=== PATIENT | male | born 1950 | race Caucasian/White ===

== ENCOUNTER → 2020-10-29 10:49 | Outpatient (CLI) | payer MEDICARE, SELFPAY ==
[2020-10-29 11:10] VITALS: BP 120/78; PULSE 73; RESP 14; TEMP 36.7; O2SAT 95; BMI 21.6
--- NOTE | 2020-10-29 12:13 | RAO.CONSULT ---
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 History of Present Illness: 10/18/2020: MRI brain with and without contrast was performed. This demonstrated multiple enhancing parenchymal masses the largest of which is noted in the left frontal lobe measuring 2.3 x 2.3 x 2.3 cm and an additional smaller lesion nearby measuring 6 mm. There is additional enhancing mass seen in the right temporal lobe which measures 8 mm and a lesion in the left cerebellum measuring 9 mm. No other evidence of metastatic disease is identified. There is severe vasogenic edema within the left frontal lobe causing left right midline shift of up to 12 mm. 10/19/2020: CT chest with contrast was performed which demonstrated severe right hilar lymphadenopathy suspicious for malignancy there is also a pulmonary lesion in the right which is small and spiculated in the upper lobe which measures about 9 mm in diameter. 10/19/2020: CT abdomen/pelvis with contrast was performed. This demonstrated a nonspecific 2.4 cm hypodense lesion within the spleen. No evidence of primary or metastatic disease is identified. 10/19/2020: Patient was seen in follow-up by medical oncology 10/19/2020: Patient was evaluated by neurosurgery. Patient has right-sided face and arm weakness. Given the likelihood that this is metastatic disease patient was recommended to undergo definitive radiation therapy for brain metastases and surgery was not recommended. 10/19/2020: Patient was evaluated by radiation oncology. Reviewed options of FSRT and whole brain radiation. 10/22/2020: Bronchoscopy was completed and EBUS and biopsy of the 10R position was completed. Cytology demonstrated non-small cell carcinoma favoring adenocarcinoma. Radiation Treatment History: No previous history of radiation therapy. No pacemaker. No diagnosis of collagen vascular disease. Interval History: Patient presents for initial consultation. He reports that approximately 3-4 weeks ago he developed some right-sided weakness and had difficulty with walking and sustained a pretty severe fall on 10/11/2020. This led to his MRI and ultimate diagnosis. He denies ever having a seizure or loss of consciousness from any of the falls. He reports that the weakness was located in his arm, leg, and he did also have right facial droop. He has been on high-dose Decadron for approximately 10 days and his strength has gradually returned, he now is able to walk without much difficulty and no longer has facial droop. He denies having cough, shortness of breath, chest pain. He has never been a smoker. He denies headaches, vision changes, nausea/vomiting, numbness, cognitive dysfunction or short-term memory loss, diplopia or other vision changes, hearing changes. He denies having bone pain. He reports having a normal appetite which is now increased on steroids, he has lost about 4-6 pounds in the last month but denies other weight loss. He denies having dysphagia or odynophagia. He lives alone and can complete all activities of daily living without much difficulty, he does live next to his daughter who can come over to assist him with certain things. He denies having other problems or concerns at this time. Family History (Last Updated 10/29/20 @ 11:06 by Maria Isabel Grigsby RN) Mother Myocardial infarction Cancer Brother Heart disease Medical History (Last Reviewed 10/29/20 @ 11:05 by Maria Isabel Grigsby RN) Abnormal gait (Acute) Brain metastases (Acute) MRI 10/18/20 2 L frontal, R temporal, L cerebellar Frequent urination (Acute) Hilar lymphadenopathy (Acute) MRI 10/19/20 Right side, Severe Lung nodules (Acute) 10/19/20 Mass of cerebellum (Acute) 10/18/20 Right sided weakness (Acute) Skin cancer (Acute) Likely BCC Tooth abscess (Acute) Vasogenic edema (Acute) 10/18/20 Social History - Tobacco Smoking Status Never smoker Passive smoke exposure: No Social History - Substance Drug use: Yes: MARIJUANA Alcohol use: No Social History - Living Arrangements Patients Living Arrangements Alone Home Medications Medication Instructions Recorded Ascorbic Acid [Vitamin C] 500 mg PO DAILY 10/29/20 Dexamethasone [Decadron] 4 mg PO DAILY 10/29/20 Folic Acid 1 mg PO DAILY 10/29/20 Levetiracetam [Keppra] 500 mg PO BID 10/29/20 Magnesium 250 mg PO DAILY 10/29/20 Multivit-Min/Iron/Folic Acid/K 1 ea PO DAILY 10/29/20 [Adults Multivitamin Tablet] Ubidecarenone [Coq10] 50 mg PO DAILY 10/29/20 Allergy/AdvReac Type Severity Reaction Status Date / Time No Known Allergies Allergy Unverified 10/29/20 11:07 Health Maintenance Do you regularly see your Yes primary care physician? Have you ever had a Yes colonoscopy? Date of last colonoscopy: 09/03/10 Review of Systems: ROS: General (done by nursing) Fever Negative Sweats at night Negative Hot flashes Negative Temperature intolerance Positive Excessive thirst Negative Fatigue Positive Sleep difficulties Positive Unexplained weight loss Negative ROS: Skin (done by nursing) Rash Negative New or changing moles Positive ROS: Eyes (done by nursing) Eye pain Negative Eye redness Negative Visual changes Negative ROS: Ears, Nose, Throat (done by nursing) Hearing loss Negative Tinnitus Negative Dizzines or vertigo Positive Bleeding gums Negative Nosebleeds Negative ROS: Breast (done by nursing) Breast pain Negative Breast mass or lump Negative Nipple discharge Negative Breast skin changes Negative ROS: Cardiovascular (done by nursing) Chest pain Negative Heart murmur Negative Irregular heartbeat Negative Swelling Negative ROS: Pulmonary (done by nursing) Shortness of breath Negative Cough Positive Hemoptysis Negative ROS: Hematopoetic (done by nursing) Swollen lymph glands Negative Blood clots Negative Excessive bleeding Negative Anemia Negative ROS: Gastrointestinal (done by nursing) Diarrhea Negative Constipation Negative Indigestion/heartburn Positive Abdominal pain Positive Hematochezia Negative ROS: Genitourinary (done by nursing) Pain, burning, or blood on Negative urination Frequency Negative Nocturia Negative Excessive urination Negative Difficulty emptying bladder Negative Incontinence Negative Decreased sexual desire Negative Pain with intercourse Negative Sexually Transmitted Disease Negative Fertility issues Negative ROS: Genitourinary - Male (done by nursing) Erectile dysfunction Negative ROS: Musculoskeletal (done by nursing) Generalized or all-over pain Negative Joint pain Negative Stiffness Negative Joint swelling Negative Joint redness Negative Back or neck pain Positive ROS: Neurological (done by nursing) Abnormal/trouble walking or Positive falls Headache Negative Seizures Negative Muscle weakness Positive TIA or stroke Negative Syncope Negative Localized numbness, tingling, Negative neuropathy ROS: Psychological (done by nursing) Anxiety Negative Depression Negative Memory loss Positive Mood swings Negative Height/Weight/BMI: Height: 5 ft 6 in Weight: 134 lbs Vital Signs Temperature 98.1 F 10/29/20 11:10 Temperature Source Temporal 10/29/20 11:10 Pulse Rate 73 10/29/20 11:10 Respiratory Rate 14 10/29/20 11:10 Blood Pressure 120/78 10/29/20 11:10 Blood Pressure Mean 92 10/29/20 11:10 Blood Pressure Source Monitor 10/29/20 11:10 Blood Pressure Position Sitting 10/29/20 11:10 Blood Pressure Location Right Arm 10/29/20 11:10 Pulse Ox 95 10/29/20 11:10 Oxygen Delivery Method Room Air 10/29/20 11:10 Physical Exam: ECO KARNOFSKY SCORE: 70% CONSTITUTIONAL: Well-developed, well-nourished, and in no apparent distress. NECK: Supple,with no thyromegaly, and non-tender. Trachea midline. No cervical or supraclavicular adenopathy noted. CARDIAC: Regular rate and rhythm. Normal S1, S2. No murmurs, rubs, or gallops. PULMONARY/CHEST: Lungs are clear to auscultation and percussion bilaterally. No wheezes, rhonchi, or crackles noted. No increased work of breathing. ABDOMINAL: Abdomen soft, non-tender, non-distended. No hepatomegaly. Normoactive bowel sounds in all four quadrants. No guarding, rebound. BACK: Straight and aligned. No CVA tenderness. Axial skeleton non-tender to percussion. EXTREMITIES: Full range of motion in all four extremities, with normal strength equally and symmetrically. No evidence of edema. No clubbing. NEUROLOGICAL EXAM: Alert and oriented x 3. Cranial nerves II through XII are grossly intact. No focal neurological deficit. Speech is fluent. There is no upper or lower extremity sensory deficit or motor deficit. Muscle strength is 5/5 in all muscle groups. Gait and posture are steady. No dysmetria. PSYCHIATRIC: Appropriate mood and affect for the clinical situation. 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 Patient presents for initial consultation. He has a relatively high performance status with few medical comorbidities. He had symptoms associated with disease including right-sided weakness and falls which have greatly improved on Decadron 4 mg 4 times per day, he currently does not have neurologic symptoms. He was evaluated by radiation oncology and neurosurgery at [facility] and recommendation was for him to undergo primary radiation therapy for the brain metastases. I reviewed the outside imaging including brain MRI, CT chest, and CT abdomen/pelvis which demonstrates a small approximately 1 cm lesion in the upper lobe of the right lung as well as pathologic adenopathy in the right hilum and four brain metastases including 2 in the left frontal lobe measuring 2.3 cm and 6 mm with associated vasogenic edema causing midline shift and a right temporal lobe lesion measuring 8 mm and a left cerebellar lesion measuring 9 mm with mild associated vasogenic edema. No molecular studies have been completed. I reviewed treatment options for brain metastases in detail including fractionated stereotactic radiation therapy as well as whole brain radiation therapy. 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 I did review that if he desires to proceed with whole brain radiation therapy that options to improve side effects would be hippocampal avoidance and use of memantine which we would try to do. The risks, benefits, and alternatives to radiation therapy were reviewed and the pros and cons of FSRT and whole brain radiation therapy were compared and contrasted. I reviewed the need to have molecular testing done on his tumor given that he is a non-smoker with an adenocarcinoma and they have actionable mutations. However I would not delay stereotactic radiation given the relatively large size of the left frontal lobe metastasis and his previous symptoms. I reviewed the logistics of whole brain radiation therapy including CT simulation, treatment planning, and daily fractionated treatment delivery for 10 fractions. The risks, benefits, and alternatives to whole brain radiation therapy were discussed in detail and all questions were addressed. I reviewed the potential acute and chronic toxicities which would include but are not limited to fatigue, alopecia, headache, nausea/vomiting, scalp erythema, decreases in memory or neurocognitive functioning which may be significant, dry mouth, reduced hearing, and radionecrosis. I reviewed options to lessen the impact on memory and neurocognitive functioning including using memantine concurrent and after radiation therapy and completing hippocampal avoidance treatment. Following our discussion the patient desired to proceed with stereotactic radiation therapy at [facility] and they will call him to make an appointment. He will be evaluated by medical oncology next week to discuss systemic therapy. He was instructed to call with any further questions or concerns in the interim. Plan: 1) planning for fractionated stereotactic radiation therapy for brain metastasis at [facility] Thank you for allowing me to participate in the management and care of your patient. If I may answer any questions in the interim, please do not hesitate to contact me at any time. Duarte Kapadia DO, MS Centralized Traffic Control Operator, Department of Radiation Oncology [facility]
== END ==
PROVIDERS: PCP Preventive Medicine Occupational Medicine; Visit Provider Student in an Organized Health Care Education/Training Program
DX: Z45.2 Encounter for adjustment and management of vascular access device (principal)

== ENCOUNTER → 2021-02-28 12:53 | Outpatient (CLI) | payer MEDICARE, SELFPAY ==
[2020-10-29 11:10] VITALS: BMI 21.6
[2021-01-20 14:44] VITALS: BMI 21.6
--- NOTE | 2021-02-28 12:57 | CT_ITS ---
STUDY: CT CHEST T ABDOMEN WITH CONTRAST REASON FOR EXAM: Male, 70 years old. LUNG CANCER RADIATION DOSAGE (If Supplied By Facility): CTDIvol = ( 10.16 ) mGy, DLP = ( 504.36 ) mGycm TECHNIQUE: Transaxial imaging was performed following intravenous administration of Oral and amp; IV REDICAT and amp; 100ML ISOVUE 300. Individualized dose optimization techniques were used for this CT. COMPARISON: Report of PET CT scan 11/10/2020 FINDINGS: CHEST Some right upper lobe scarring. No noncalcified nodule or mass. There is no demonstrated pleural abnormality. Normal heart and pericardium. Normal mediastinum. Right hilar mass measuring 2.2 x 3.2 cm just lateral to the bronchus intermedius worrisome for primary bronchial carcinoma. This may have increased in size from 1.6 x 2.4 cm. Normal unenhanced pulmonary arteries. Normal aorta arch and descending thoracic aorta. Normal osseous structures. There is no demonstrated abnormality of the visualized upper abdomen. ABDOMEN The visualized lung bases are unremarkable. The visualized portions of the heart are within normal limits. Normal liver. Normal gallbladder and extrahepatic biliary system. Subtle 1.5 cm round area of decreased attenuation within the superior aspect of the spleen consistent with metastasis. Normal pancreas. Normal bilateral adrenal glands. Normal right kidney. Normal left kidney. Normal visualized stomach. Normal small intestine. Normal colon. There is non-visualization of the appendix. There is diffuse atherosclerotic calcification of the abdominal aorta, without a demonstrated aneurysm. Normal inferior vena cava. Normal retroperitoneum. Normal abdominal wall. Normal osseous structures. CT/CT Chest AND Abd W/ Contrast IMPRESSION: 1. Known right hilar mass consistent with bronchogenic carcinoma. This appears to have increased in size from 1.6 x 2.4 cm to 2.2 x 3.2 cm. 2. No solitary splenic metastasis. Electronically Signed: Charlie Zuñiga MD at 17:44 EDT Tel , Service support ,
[2021-02-28 13:15] LABS: CREATININE FINGERSTICK 0.8 mg/dL (0.70-1.30); EGFR FINGERSTICK > 60.0000 mL/min (>60)
== END ==
PROVIDERS: PCP Preventive Medicine Occupational Medicine; Referring Provider Internal Medicine Medical Oncology; Visit Provider Internal Medicine Medical Oncology
DX: C34.91 Malignant neoplasm of unspecified part of right bronchus or lung (principal)
CPT/HCPCS: 71260; 74160; Q9967

== ENCOUNTER → 2021-06-01 12:47 | Outpatient (CLI) | payer MEDICARE, SELFPAY ==
[2020-10-29 11:10] VITALS: BMI 21.6
--- NOTE | 2021-06-01 12:52 | CT_ITS ---
STUDY: CT CHEST WITH CONTRAST REASON FOR EXAM: Male, 70 years old. Patient has a history of lung cancer with brain metastasis. RADIATION DOSAGE (If Supplied By Facility): CTDIvol = ( 15.33 ) mGy, DLP = ( 411.91 ) mGycm TECHNIQUE: Transaxial imaging was performed following intravenous administration of IV 100mL Isovue-370. Multiplanar coronal and sagittal images were reformatted. Individualized dose optimization techniques were used for this CT. COMPARISON: Comparison is made with prior study dated 02/28/2021. FINDINGS: Stable minimal linear scarring in the posterior aspect of the right upper lobe. No mass lesion is seen. Minimal scarring at the lung bases slightly more prominent on the right side. There is no demonstrated pleural abnormality. Normal heart and pericardium. Normal mediastinum. Once again, there is a right hilar mass measuring 2.8 cm x 3.1 cm. There has increased slightly in size as compared to prior. Normal enhanced pulmonary arteries. Normal aorta arch and descending thoracic aorta. There is demineralization of the thoracic spine. Stable minimal loss of height of a mid dorsal vertebra. There is no demonstrated abnormality of the visualized upper abdomen. CT/Chest WITH Contrast IMPRESSION: Since prior study, there has been a mild degree of increased size of the right hilar soft tissue density. Electronically Signed: Aditya Dickson MD at 13:23 EDT , Service support ,
== END ==
PROVIDERS: PCP Preventive Medicine Occupational Medicine; Referring Provider Internal Medicine Medical Oncology; Visit Provider Internal Medicine Medical Oncology
DX: C34.91 Malignant neoplasm of unspecified part of right bronchus or lung (principal)
CPT/HCPCS: 71260; Q9967

== ENCOUNTER 2021-09-06 10:54 | Outpatient (CLI) | payer MEDICARE, SELFPAY ==
[2020-10-29 11:10] VITALS: BMI 21.6
--- NOTE | 2021-09-06 10:59 | CT_ITS ---
STUDY: CT CHEST T ABDOMEN WITH CONTRAST REASON FOR EXAM: Male, 70 years old. MONITOR LUNG CANCER. Brain metastasis. RADIATION DOSAGE (If Supplied By Facility): CTDIvol = ( 12.11 ) mGy, DLP = ( 421.90 ) mGycm TECHNIQUE: Transaxial imaging was performed following intravenous administration of IV 100mL Isovue-370. Individualized dose optimization techniques were used for this CT. COMPARISON: Comparison is made with prior study dated 06/01/2021. FINDINGS: CHEST Small benign appearing bilateral axillary lymph nodes. Hyperinflation. Mild emphysematous changes. Minimal scarring at the lung bases. There is no demonstrated pleural abnormality. There are calcifications of the coronary arteries. Enlarged right paratracheal lymph node measuring 1.3 cm x 2 cm. This was not seen on prior study. Persistent enlargement of the right hilar lymph nodes. This measures 2.9 cm x 2 cm. This has decreased slightly in size as compared to prior study. Normal unenhanced pulmonary arteries. Normal aorta arch and descending thoracic aorta. Normal osseous structures. Diffuse fatty infiltration of the liver. There is a 3 cm x 3.5 cm hypodense mass in the superior aspect of the spleen medially. ABDOMEN Normal liver. Normal gallbladder and extrahepatic biliary system. Normal spleen. Normal pancreas. Normal bilateral adrenal glands. Normal right kidney. Normal left kidney. Normal visualized stomach. Normal small intestine. Normal colon. The appendix is visualized and appears normal. There is diffuse atherosclerotic calcification of the abdominal aorta, without a demonstrated aneurysm. Normal inferior vena cava. Normal retroperitoneum. Normal abdominal wall. There are diffuse degenerative changes of the visualized lumbar spine. CT/CT Chest AND Abd W/ Contrast IMPRESSION: Slight increase in size of the right paratracheal lymph node. Mild decrease in size of the right hilar adenopathy. 3 cm x 3.5 cm hypodense mass in the superior medial posterior aspect of the spleen. Electronically Signed: Aditya Dickson MD at 14:31 EST , Service support ,
[2021-09-06 11:40] LABS: CREATININE FINGERSTICK 0.8 mg/dL (0.70-1.30); EGFR FINGERSTICK > 60.0000 mL/min (>60)
== END 2021-09-06 23:59 | disposition short-term general hospital (02) ==
LOC: CT 10:57
PROVIDERS: PCP Preventive Medicine Occupational Medicine; Referring Provider Internal Medicine Medical Oncology; Visit Provider Internal Medicine Medical Oncology
DX: C34.91 Malignant neoplasm of unspecified part of right bronchus or lung (principal)
CPT/HCPCS: 71260; 74160; Q9967

== ENCOUNTER 2021-11-22 13:47 | Outpatient (CLI) | payer MEDICARE, SELFPAY ==
[2020-10-29 11:10] VITALS: BMI 21.6
--- NOTE | 2021-11-22 13:55 | CT_ITS ---
STUDY: CT CHEST T ABDOMEN WITH CONTRAST REASON FOR EXAM: Male, 70 years old. ASSESS TREATMENT RESPONSE. History of lung cancer. RADIATION DOSAGE (If Supplied By Facility): CTDIvol = ( 8.08 ) mGy, DLP = ( 392.57 ) mGycm TECHNIQUE: Transaxial imaging was performed following intravenous administration of 100 CC ISOVUE 300. Individualized dose optimization techniques were used for this CT. COMPARISON: Comparison is made with prior CT scan of the thorax dated 09/06/2021. FINDINGS: CHEST Stable mild degree of emphysematous changes. There is no demonstrated pleural abnormality. There are calcifications of the coronary arteries. There is a right paratracheal lymph node measuring 1.4 cm x 2.1 cm. This is essentially unchanged. There is also evidence of persistent enlargement of the right hilar lymph node. It presently measures 2.8 cm x 2.2 cm. This is slightly decreased in size as compared to prior study. Normal unenhanced pulmonary arteries. There is atherosclerotic calcification of the aortic arch with tortuosity and elongation of the aortic arch and descending thoracic aorta. There are mild degenerative changes of the thoracic spine. ABDOMEN Normal liver. There is evidence of a contracted gallbladder with small gallstones. There is a 6.3 cm x 6.3 cm heterogeneous hypodense mass in the mid and inferior aspects of the medial portion of the spleen. A metastatic deposit should be ruled out. This has increased in size as compared to prior study. Normal pancreas. Normal bilateral adrenal glands. Normal right kidney. Normal left kidney. Normal visualized stomach. Normal small intestine. Normal colon. The appendix is visualized and appears normal. There is diffuse atherosclerotic calcification of the abdominal aorta, without a demonstrated aneurysm. Normal inferior vena cava. Normal retroperitoneum. Normal abdominal wall. There are diffuse degenerative changes of the visualized lumbar spine. CT/CT Chest AND Abd W/ Contrast IMPRESSION: Hypodense mass in the spleen measuring 6.3 cm x 6.3 cm. Slight decrease in size of the previously seen right paratracheal lymph node and right hilar lymph node. Small gallstones. Electronically Signed: Aditya Dickson MD at 15:41 EDT ,
[2021-11-22 14:26] LABS: CREATININE FINGERSTICK < 0.6 mg/dL (0.70-1.30); EGFR FINGERSTICK > 60.0000 mL/min (>60)
[2021-11-22 14:29] LABS: Absolute Lymphocyte Count 1.42 X10^3/uL (0.83-4.51); Absolute Neutrophil Count 5.4 X10^3/uL (2.0-7.7); Basophil# 0.04 X10^3/uL; Basophil% 0.5 % (0-1); Eosinophils% 1.2 % (0-5); Hematocrit 33.3 % (40-54); Hemoglobin 10.6 g/dL (13.0-16.5); Lymphocyte # 1.42 X10^3/ul (0.83-4.51); Lymphocyte % 17.4 % (19-41); Mean Corp Hgb Conc 31.8 g/dL (32-36); Mean Corpuscular Hgb 27.4 pg (27.0-32.0); Mean Platelet Vol. 9.7 fl (6.2-12.0); Monocyte# 1.12 X10^3/uL; Monocyte% 13.7 % (0-10); NRBC Flagged by Analyzer 0 % (0-5); Neutrophil # 5.44 X10^3/uL (2.7-7.7); Neutrophil % 66.8 % (47-70); Platelet Count 442 K/mm3 (150-450); RBC Distribution Width CV 13.6 % (11.6-14.6); RBC Distribution Width SD 42.6 fl (35.1-43.9); Red Blood Count 3.87 M/mm3 (4.6-6.2); White Blood Count 8.2 K/mm3 (4.4-11.0)
[2021-11-22 14:54] LABS: ALB/GLOB Ratio 0.4 RATIO (0.9-2.4); AST(SGOT) 40 U/L (15-37); Alanine Aminotransfer ALT/SGPT 28 U/L (16-61); Albumin, Serum 2.6 g/dL (3.2-5.0); Alkaline Phosphatase 103 U/L (45-117); Anion Gap 6 (5-15); BUN 16 mg/dL (7-18); Calcium,Total 9.4 mg/dL (8.5-10.1); Chloride 101 mmol/L (98-107); Creatinine, Serum 1.14 mg/dL (0.70-1.30); EST Glomerular Filtration Rate 67 mL/min (>60); Est Glom Filt Rate - Afr Amer 81 mL/min (>60); Globulin 6.2 g/dL (2.2-4.2); Glucose 117 mg/dL (74-106); LDH 329 U/L (87-241); Potassium 3.9 mmol/L (3.5-5.1); Protein, Total 8.8 g/dL (6.4-8.2); Sodium Level 134 mmol/L (136-145)
[2021-11-22 21:54] LABS: Xtra Tube EP Lab EXTRA TUBE
== END 2021-11-22 23:59 | disposition home or self-care (01) ==
LOC: LAB 13:48
PROVIDERS: PCP Preventive Medicine Occupational Medicine; Visit Provider Internal Medicine Medical Oncology
DX: C34.11 Malignant neoplasm of upper lobe, right bronchus or lung (principal); C79.31 Secondary malignant neoplasm of brain
CPT/HCPCS: 36415; 71260; 74160; 80053; 83615; 85025; Q9967

== ENCOUNTER → 2022-04-25 | Outpatient (CLI) | payer MEDICARE, SELFPAY ==
[2020-10-29 11:10] VITALS: BMI 21.6
--- NOTE | 2022-04-25 12:57 | CT_ITS ---
STUDY: CT CHEST T ABDOMEN WITH CONTRAST REASON FOR EXAM: Male, 71 years old. ASSESS TREATMENT RESPONSE-IV ONLY-LUNG CA. History of brain and splenic metastases. RADIATION DOSAGE (If Supplied By Facility): CTDIvol = ( 11.87 ) mGy, DLP = ( 747.53 ) mGycm TECHNIQUE: Transaxial imaging was performed following intravenous administration of IV 100mL Isovue-300. Multiplanar coronal and sagittal images were reformatted. Individualized dose optimization techniques were used for this CT. COMPARISON: Comparison is made with prior examination 11/22/2021. FINDINGS: CHEST The lungs are normal. There is no demonstrated pleural abnormality. There are calcifications of the coronary arteries. Persistent right paratracheal lymph node. This has increased in size as compared to prior study. Presently measures 3.6 cm by 2.8 cm. Mild progressive enlargement of the right hilar lymph node measuring 3 cm by 2.4 cm. Normal unenhanced pulmonary arteries. There is atherosclerotic calcification of the aortic arch with tortuosity and elongation of the aortic arch and descending thoracic aorta. There are degenerative changes of the thoracic spine. ABDOMEN Normal liver. Small gallstones. Progressive heterogeneous mass in the spleen. It presently measures 9.7 cm x 8.6 cm. Normal pancreas. Normal bilateral adrenal glands. Normal right kidney. Normal left kidney. Normal visualized stomach. Normal small intestine. Normal colon. The appendix is visualized and appears normal. There is diffuse atherosclerotic calcification of the abdominal aorta, without a demonstrated aneurysm. Normal inferior vena cava. Normal retroperitoneum. Normal abdominal wall. Straightening of the normal lumbar lordosis. CT/CT Chest AND Abd W/ Contrast IMPRESSION: Progressive enlargement of the mass within the spleen. Progressive enlargement of the right paratracheal lymph node in the right hilar lymph node. Electronically Signed: Aditya Dickson MD at 13:45 EDT ,
== END | disposition home or self-care (01) ==
LOC: CT 12:56
PROVIDERS: PCP Preventive Medicine Occupational Medicine; Referring Provider Internal Medicine Medical Oncology; Visit Provider Internal Medicine Medical Oncology
DX: C34.11 Malignant neoplasm of upper lobe, right bronchus or lung (principal); C79.31 Secondary malignant neoplasm of brain
CPT/HCPCS: 71260; 74160; Q9967